=== PATIENT | female | born 1960 | race Caucasian/White ===

== ENCOUNTER 2024-06-02 14:36 | Outpatient (AMB) | payer MEDICARE, BC, SELFPAY ==
--- NOTE | 2024-06-02 14:41 | A.OFFVIS_ITS ---
Vital Signs 06/02/24 14:42 Height 5 ft Weight 144 lb BMI 28.1 BP 122/70 Blood Pressure Location Lt brachial Position Sitting Pulse 69 Pulse Source Pulse Oximeter Pulse Oximetry (%) 97 Oxygen Delivery Method Room Air Intake Visit Reasons: Abnormal CT scan Inspector Fabric Required: No Allergies nabumetone [From Relafen] Adverse Reaction (Severe, Verified 06/02/24 14:46) Rash HPI Comments Details: The patient is here for pulmonary evaluation. The patient is a 64 year woman with a known history of asthma and hypogammaglobulinemia on subcutaneous IgG presenting with worsening asthma symptoms and an abnormal CT scan of the chest. Apparently she was in her usual state health until back in 02/29/2024. She had just come back from [place] she developed a respiratory illness. Subsequently after that she developed significant coughing chest tightness and wheezing. She was seen by her supervisor cutting and boning who sent her to [facility] ER for severe asthma symptoms. She was admitted to the hospital placed on medications. While in the hospital she had an x-ray. After she did undergo a CT scan of the chest that was done back in 03/30/2024 which I personally reviewed. The patient did have a pulmonary nodule measuring 6 mm in size subsolid nature but unchanged when compared to a CT scan from 2022. No significant other changes noted. The patient was noted to have slight dilation of the right and left pulmonary arteries but pulmonary trunk was stable. 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 No mention about pulmonary hypertension. Will request a copy to see make sure that her pulmonary pressures are reasonable. Her sleep is well no evidence of any sleep apnea. At this point the patient is feeling better although she still having episodes of chest tightness and coughing and shortness of breath. There intermittent but moderate severity. Will go ahead and maximize respiratory therapy by switching her from Breo to Trelegy. She will return in 2-3 months and will perform pulmonary function studies to assess her lung capacity. [facility] Medical History (Updated 06/02/24 @ 23:17 by Orlando Horan MD) Hypogammaglobulinemia Pulmonary nodule Chronic cough Asthma Social History (Updated 06/02/24 @ 14:49 by GOKUL Meyer) Patient Tobacco Use Status: Never used Tobacco Review of Systems Const Denies fever(s) Eyes Reports no additional complaints and Denies change in vision ENT Reports nasal congestion Card Denies chest pain and Reports dyspnea on exertion Resp Reports cough, Reports dyspnea on exertion and Reports wheezing GI Reports no additional complaints Musc Reports no additional complaints Skin/Breast Denies rash Aller/Immun Reports wheezing Physical Exam Vital Signs: Last Vital Signs Pulse 69 06/02/24 14:42 BP 122/70 06/02/24 14:42 Pulse Ox 97 06/02/24 14:42 Oxygen Delivery Method Room Air 06/02/24 14:42 BMI result Body Mass Index 28.1 Const General: comfortable HEENT Head: Yes normocephalic Neck Neck: Yes supple Chest Chest palpation & inspection: normal inspection of the chest Resp Effort & Inspection: normal respiratory effort and prolonged expiratory phase Auscultation: diminished lung sounds Cardio Heart sounds: S1 normal heart sound present and S2 normal heart sound present GI Palpation (GI): Soft to palpation Skin General skin exam: no rashes or lesions noted Extrem General: Yes no clubbing, cyanosis or edema Assessment & Plan Assessment & Plan (1) Asthma: Code(s): J45.909 - Unspecified asthma, uncomplicated Category: Medical Qualifiers: Asthma severity: moderate Asthma persistence: persistent Asthma complication type: uncomplicated Qualified Code(s): J45.40 - Moderate persistent asthma, uncomplicated (2) Chronic cough: Code(s): R05.3 - Chronic cough Category: Medical (3) Pulmonary nodule: Code(s): R91.1 - Solitary pulmonary nodule Category: Medical (4) Hypogammaglobulinemia: Code(s): D80.1 - Nonfamilial hypogammaglobulinemia Category: Medical Plan stop Breo Start Trelegy FERNANDO as needed continue singulair repeat CT chest in 1 yr continue with IgG therapy F/U 2-3 months with PFTs Orders: Orders PFT pulmonary function test Today J45.40 - Moderate persistent asthma, uncomplicated CT chest wo IV con 04/11/25 R91.1 - Solitary pulmonary nodule Medications: New faapmkqvuxn-mubskmxzp-npogxhfc 200-62.5-25 mcg (Trelegy Ellipta) 1 inh inhalation DAILY 30 days 60 ea 12RF Coding Level of Care Code New Pt Level 4 (42610) Diagnoses Moderate persistent asthma without complication J45.40 Asthma severity: moderate Asthma persistence: persistent Asthma complication type: uncomplicated Chronic cough R05.3 Pulmonary nodule R91.1 Hypogammaglobulinemia D80.1 Time Spent (min) 38
[2024-06-02 14:42] VITALS: BP 122/70; PULSE 69; O2SAT 97; BMI 28.1
== END 2024-06-02 15:13 | disposition home or self-care (01) ==
PROVIDERS: PCP Nurse Practitioner; Referring Provider Allergy & Immunology; Visit Provider Hospitalist
DX: J45.40 Moderate persistent asthma, uncomplicated (principal); R05.3 Chronic cough; R91.1 Solitary pulmonary nodule; D80.1 Nonfamilial hypogammaglobulinemia
CPT/HCPCS: 99204

== ENCOUNTER → 2024-06-02 14:36 | Outpatient (BNVA) | payer BC, SELFPAY | PROVIDERS: PCP Nurse Practitioner; Referring Provider Allergy & Immunology; Visit Provider Hospitalist | DX: J45.40 Moderate persistent asthma, uncomplicated (principal); R05.3 Chronic cough; R91.1 Solitary pulmonary nodule; D80.1 Nonfamilial hypogammaglobulinemia | CPT/HCPCS: 99202 ==

== ENCOUNTER 2024-09-14 08:32 | Outpatient (AMB) | payer MEDICARE, BC, SELFPAY ==
--- NOTE | 2024-09-14 08:39 | A.OFFVIS_ITS ---
Vital Signs 09/14/24 08:41 Height 5 ft Weight 149 lb 14.629 oz BMI 29.3 BP 132/68 Blood Pressure Location Lt brachial Position Sitting Pulse 74 Pulse Source Pulse Oximeter Pulse Oximetry (%) 97 Oxygen Delivery Method Room Air Intake Visit Reasons: Asthma Ecological Economist Required: No Senior Qa Automation Engineer: Senior Qa Automation Engineer offered & declined Accompanied by: Self / Same As Patient Allergies nabumetone [From Relafen] Adverse Reaction (Severe, Verified 09/14/24 08:44) Rash Medication List - Last Reconciled 09/14/24 by Radha Beatty LPN albuterol sulfate 90 mcg/actuation inhalation albuterol sulfate mg inhalation amlodipine 2.5 mg PO DAILY apixaban (Eliquis) 5 mg PO BID fluticasone furoate-vilanterol 200-25 mcg/dose inhalation gssdixtfofs-orjhotwpk-yoxadnej 200-62.5-25 mcg (Trelegy Ellipta) 1 inh inhalation DAILY 30 days hydrochlorothiazide 25 mg PO DAILY IgG-hyaluronidase,recombinant 30 gram /300 mL (10 %) (HyQvia) mL subcut IgG-hyaluronidase,recombinant 5 gram /50 mL (10 %) (HyQvia) mL subcut lisinopril 30 mg PO DAILY loperamide 4 mg PO BID metoprolol tartrate 25 mg PO BID montelukast 10 mg PO DAILY nebulizers As directed omeprazole 20 mg PO BID sertraline 100 mg PO DAILY simvastatin 20 mg PO BEDTIME HPI Comments Details: The patient is a 64 year woman with a known history of asthma and hypogammaglobulinemia on subcutaneous IgG presenting with worsening asthma symptoms and an abnormal CT scan of the chest. Apparently she was in her usual state health until back in 02/29/2024. She had just come back from [place] she developed a respiratory illness. Subsequently after that she developed significant coughing chest tightness and wheezing. She was seen by her sand mill operator who sent her to [facility] ER for severe asthma symptoms. She was admitted to the hospital placed on medications. While in the hospital she had an x-ray. After she did undergo a CT scan of the chest that was done back in 03/30/2024 which I personally reviewed. The patient did have a pulmonary nodule measuring 6 mm in size subsolid nature but unchanged when compared to a CT scan from 2023. No significant other changes noted. The patient was noted to have slight dilation of the right and left pulmonary arteries but pulmonary trunk was stable. 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 No mention about pulmonary hypertension. Will request a copy to see make sure that her pulmonary pressures are reasonable. Her sleep is well no evidence of any sleep apnea. At this point the patient is feeling better although she still having episodes of chest tightness and coughing and shortness of breath. There intermittent but moderate severity. Will go ahead and maximize respiratory therapy by switching her from Breo to Trelegy. She will return in 2-3 months and will perform pulmonary function studies to assess her lung capacity. 09/14/2024 the patient is here for a pulmonary follow-up visit. The patient overall has been doing well from a respiratory status. She responded well to the Trelegy inhaler. She has uses daily. She has not had to use her rescue inhaler. She has been exercising regularly. In addition to that she continues with her subcutaneous IgG therapy. That is been affecting beneficial. She did get her flu shot I did recommend she get her pneumonia shot, Prevnar 20 and also get her Rx VRC vaccine. She is now dealing with the 's issue with dementia. She is very concerned. Therefore she is trying to stay as healthy as possible to be able to take care him. In the meantime the patient last CT scan was back in 04/30/2024. She does have a subsolid pulmonary nodule. Measuring 6 mm in size. She should have a repeat CT scan in a year's time. The patient will follow-up in April after her CT scan. I which point she would also have PFTs. [facility] Medical History (Updated 06/02/24 @ 23:17 by Orlando Horan MD) Hypogammaglobulinemia Pulmonary nodule Chronic cough Asthma Social History (Updated 09/14/24 @ 08:46 by Radha Beatty LPN) Patient Tobacco Use Status: Never used Tobacco Review of Systems Const Denies fever(s) Eyes Reports no additional complaints and Denies change in vision ENT Reports nasal congestion Card Denies chest pain and Denies dyspnea on exertion Resp Reports cough, Denies dyspnea on exertion and Denies wheezing GI Reports no additional complaints Musc Reports no additional complaints Skin/Breast Denies rash Aller/Immun Denies wheezing Physical Exam Vital Signs: Last Vital Signs Pulse 74 09/14/24 08:41 BP 132/68 09/14/24 08:41 Pulse Ox 97 09/14/24 08:41 Oxygen Delivery Method Room Air 09/14/24 08:41 BMI result Body Mass Index 29.3 Const General: comfortable HEENT Head: Yes normocephalic Neck Neck: Yes supple Chest Chest palpation & inspection: normal inspection of the chest Resp Effort & Inspection: normal respiratory effort Auscultation: clear to auscultation bilaterally Cardio Heart sounds: S1 normal heart sound present and S2 normal heart sound present GI Palpation (GI): Soft to palpation Skin General skin exam: no rashes or lesions noted Extrem General: Yes no clubbing, cyanosis or edema Assessment & Plan Assessment & Plan (1) Asthma: Code(s): J45.909 - Unspecified asthma, uncomplicated Category: Medical Qualifiers: Asthma severity: moderate Asthma persistence: persistent Asthma complication type: uncomplicated Qualified Code(s): J45.40 - Moderate persiste nt asthma, uncomplicated (2) Chronic cough: Code(s): R05.3 - Chronic cough Category: Medical (3) Pulmonary nodule: Code(s): R91.1 - Solitary pulmonary nodule Category: Medical (4) Hypogammaglobulinemia: Code(s): D80.1 - Nonfamilial hypogammaglobulinemia Category: Medical Plan continue Trelegy FERNANDO as needed continue singulair repeat CT chest in 04/2025 continue with IgG therapy PFTs in 04/2025 F/U 8 months Orders: Orders PFT pulmonary function test 04/06/25 J45.40 - Moderate persistent asthma, uncomplicated Coding Level of Care Code Est Pt Level 4 (54802) Diagnoses Moderate persistent asthma without complication J45.40 Asthma severity: moderate Asthma persistence: persistent Asthma complication type: uncomplicated Chronic cough R05.3 Pulmonary nodule R91.1 Hypogammaglobulinemia D80.1 Time Spent (min) 16
[2024-09-14 08:41] VITALS: BP 132/68; PULSE 74; O2SAT 97; BMI 29.3
== END 2024-09-14 09:01 | disposition home or self-care (01) ==
LOC: HO.HPS 08:33
PROVIDERS: PCP Nurse Practitioner; Visit Provider Hospitalist
DX: J45.40 Moderate persistent asthma, uncomplicated (principal); R05.3 Chronic cough; R91.1 Solitary pulmonary nodule; D80.1 Nonfamilial hypogammaglobulinemia
CPT/HCPCS: 99214

== ENCOUNTER → 2024-09-14 08:32 | Outpatient (BNVA) | payer MEDICARE, BC, SELFPAY | PROVIDERS: PCP Nurse Practitioner; Visit Provider Hospitalist | DX: J45.40 Moderate persistent asthma, uncomplicated (principal); R05.3 Chronic cough; R91.1 Solitary pulmonary nodule; D80.1 Nonfamilial hypogammaglobulinemia | CPT/HCPCS: 99212 ==